=== PATIENT | male | born 1990 | race Caucasian/White ===

== ENCOUNTER 2019-06-07 02:44 | Emergency (ER) | payer BC ==
[2019-06-07] MEDS ORDERED: THIAMINE 200 MG/2 ML INJ ONE (03:12)
[2019-06-07] MEDS ORDERED: MULTIVITAMINS 10 ML VIAL (INJ) IV ONE (03:13)
[2019-06-07] MEDS ORDERED: DIAZEPAM 10 MG/2 ML INJ SYRINGE ONE ×2 (03:13→05:08)
[2019-06-07] MEDS ORDERED: NA CHLORIDE 0.9% 2,000 ML ONE (03:13)
[2019-06-07] MEDS ORDERED: FOLIC ACID 5 MG/ML VIAL ONE (03:14)
[2019-06-07 03:46] LABS: Magnesium 2.1 mg/dL (1.8-2.4); Potassium 3.9 mmol/L (3.5-5.1)
[2019-06-07] MEDS ORDERED: CALCIUM CARBONATE CHEW 500MG TAB ONE (04:53)
[2019-06-07] MEDS ORDERED: LORazepam 2 MG/ML VIAL ONE (05:06)
--- NOTE | 2019-06-07 06:20 | EDPHYS ---
Physician Documentation [facility] Name: Simeon Saul Age: 29 yrs Sex: Male : 1990 Arrival Date: 06/07/2019 Time: 02:47 Bed 15 Private MD: ED Physician Brennon Hernández HPI: 06/07 03:01 This 29 yrs old Male presents to ER via Ambulatory with complaints of rn POSSIBLE DEHYDRATION. 03:01 Reports alcoholic, drinking heavily for "a while", but worse over last 3 months, can go rn about 8 hours without a drink while at work, shakes, and feels anxious, but then drinks when gets home and feels better. States last drink a few hours ago. Feels shaky and couldn't go back to sleep. Not looking for rehab because can't afford to abandon brother at apartment who is dependant on his income as well. No drug use. . Severity of symptoms: At their worst the symptoms were moderate in the emergency department the symptoms are unchanged. The patient has experienced similar episodes in the past. The patient has not recently seen a physician. Historical: - Allergies: 02:56 No Known Allergies; - Home Meds: 02:56 None [Active]; - PMHx: 02:56 None; - PSHx: 02:56 None; - Immunization history:: Adult Immunizations not up to date. - Social history:: Smoking status: Patient uses tobacco products, Patient uses alcohol, on a daily basis. patient/guardian reports recent binge of alcohol consumption. - Ebola Screening: : Patient negative for fever greater than or equal to 101.5 degrees Fahrenheit, and additional compatible Ebola Virus Disease symptoms Patient denies exposure to infectious person. - Family history:: not pertinent. - Hospitalizations: : No recent hospitalization is reported. ROS: 03:01 Constitutional: Negative for fever, chills, and weight loss, Eyes: Negative for injury, rn pain, redness, and discharge, Neck: Negative for injury, pain, and swelling, Cardiovascular: Negative for chest pain, palpitations, and edema, Respiratory: Negative for shortness of breath, cough, wheezing, and pleuritic chest pain, Abdomen/GI: Negative for abdominal pain, nausea, vomiting, diarrhea, and constipation, MS/Extremity: Negative for injury and deformity, Skin: Negative for injury, rash, and discoloration, Neuro: + generalized weakness and shaking, neg for seizures or focal neurological problems. Exam: 03:01 Constitutional: This is a well developed, well nourished patient who is awake, alert, telephonic rn to room without difficulty or assistance Head/Face: Normocephalic, atraumatic. Eyes: Pupils equal round and reactive to light, extra-ocular motions intact. Lids and lashes normal. Conjunctiva and sclera are non-icteric and not injected. Cornea within normal limits. Periorbital areas with no swelling, redness, or edema. ENT: dry MM Cardiovascular: tachycardic, regular, no murmur Respiratory: No increased work of breathing, no retractions or nasal flaring. Abdomen/GI: soft, non-tender MS/ Extremity: Pulses equal, no cyanosis. Neurovascular intact. Full, normal range of motion. Equal circumference. Neuro: Awake and alert, GCS 15, oriented to person, place, time, and situation. Cranial nerves II-XII grossly intact. Motor strength 5/5 in all extremities. Sensory grossly intact. Cerebellar exam normal. Normal gait. + mild extremity tremors. No tongue fasciculation. Vital Signs: 02:59 BP 158 / 98; Pulse 141; Resp 18; Temp 98.5; Pulse Ox 98% ; Weight 65.77 kg; Height 5 wh ft. 7 in. (170.18 cm); 03:58 BP 132 / 80; Pulse 126; Resp 18; Pulse Ox 98% on R/A; wh 05:18 BP 115 / 68; Pulse 110; Resp 18; Pulse Ox 95% on R/A; wh 06:31 BP 115 / 66; Pulse 105; Resp 18; Pulse Ox 96% on R/A; wh 02:59 Body Mass Index 22.71 (65.77 kg, 170.18 cm) MDM: 02:49 Patient medically screened. rn 04:54 Differential Diagnosis dehydration, ETOH dependence with withdrawal. Data reviewed: rn vital signs, nurses notes, lab test result(s), EKG. Counseling: I had a detailed discussion with the patient and/or guardian regarding: the historical points, exam findings, and any diagnostic results supporting the discharge/admit diagnosis, lab results, the need for outpatient follow up, to return to the emergency department if symptoms worsen or persist or if there are any questions or concerns that arise at home. Response to treatment: the patient's symptoms have markedly improved after treatment, the patient's condition has returned to base line, the patient is now symptom free, patient is well hydrated. ED course: Recommended ETOH cessation, patient does not want to be admitted or go through rehab at this time, just wanted help falling asleep and to feel better, instructed him on how to slowly wean himself off ETOH and understands. Improved vitals. Will dc home. . 06/07 03:00 Order name: BMP; Complete Time: 04:20 rn 06/07 03:00 Order name: Magnesium; Complete Time: 04:20 rn 06/07 03:00 Order name: IV Start; Complete Time: 03:32 rn 06/07 03:01 Order name: EKG; Complete Time: 03:02 rn 06/07 03:01 Order name: EKG - Nurse/Tech; Complete Time: 03:32 rn 06/07 04:54 Order name: PO challenge; Complete Time: 04:56 rn Administered Medications: 03:15 Drug: Banana Bag - (NS 0.9% 1000 ml, foLIC Acid 1 mg, Thiamine 100 mg, Multivitamin 1 wh amp) Route: IV; Rate: calculated rate; Site: right forearm; 05:19 Follow up: Response: No adverse reaction; IV Status: Completed infusion 03:15 Drug: NS 0.9% 1000 ml Route: IV; Rate: 1000 ml; Site: right forearm; 05:19 Follow up: Response: No adverse reaction; IV Status: Completed infusion 03:20 Drug: Valium 10 mg Route: IVP; Site: right forearm; 05:20 Follow up: Response: No adverse reaction; RASS: Alert and Calm (0) 04:55 Drug: Calcium Carbonate 500 mg Route: PO; 05:20 Follow up: Response: No adverse reaction 05:10 Drug: Valium 10 mg Route: IVP; Site: right antecubital; 06:30 Follow up: Response: No adverse reaction; RASS: Alert and Calm (0) Disposition: 06/07/19 06:20 Discharged to Home. Impression: Dehydration, Alcohol dependence with withdrawal, Hypocalcemia. - Condition is Stable. - Discharge Instructions: Alcohol Withdrawal, Dehydration, Adult, Alcohol Abuse and Nutrition. - Medication Reconciliation Form, Thank You Letter, Antibiotic Education, Prescription Opioid Use, Work release form form. - Follow up: Private Physician; When: As needed; Reason: Recheck today's complaints, Re-evaluation by your physician. - Problem is new. - Symptoms have improved. Signatures: Dispatcher [employer] EDBrennon August MD MD rn Habalo, Winsy Corrections: (The following items were deleted from the chart) 06:32 06:20 06/07/2019 06:20 Discharged to Home. Impression: Dehydration; Alcohol dependence wh with withdrawal; Hypocalcemia. Condition is Stable. Forms are Medication Reconciliation Form, Thank You Letter, Antibiotic Education, Prescription Opioid Use. Follow up: Private Physician; When: As needed; Reason: Recheck today's complaints, Re-evaluation by your physician. Problem is new. Symptoms have improved. rn
--- NOTE | 2019-06-07 06:20 | ER ---
Nurse's Notes [facility] Name: Simeon Saul Age: 29 yrs Sex: Male : 1990 Arrival Date: 06/07/2019 Time: 02:47 Bed 15 Private MD: Diagnosis: Dehydration;Alcohol dependence with withdrawal;Hypocalcemia Presentation: 06/07 02:54 Presenting complaint: Patient states: He was binge drinking for a couple of weeks, wh feels like he is dehydrated C/O muscle cramping and tremors. Transition of care: patient was not received from another setting of care. Onset of symptoms was June 07, 2019. Risk Assessment: Do you want to hurt yourself or someone else? Patient reports no desire to harm self or others. Initial Sepsis Screen: Does the patient meet any 2 criteria? HR > 90 bpm. Does the patient have a suspected source of infection? No. Patient's initial sepsis screen is negative. Care prior to arrival: None. 02:54 Method Of Arrival: Ambulatory 02:54 Acuity: PAKO 3 Historical: - Allergies: 02:56 No Known Allergies; - Home Meds: 02:56 None [Active]; - PMHx: 02:56 None; - PSHx: 02:56 None; - Immunization history:: Adult Immunizations not up to date. - Social history:: Smoking status: Patient uses tobacco products, Patient uses alcohol, on a daily basis. patient/guardian reports recent binge of alcohol consumption. - Ebola Screening: : Patient negative for fever greater than or equal to 101.5 degrees Fahrenheit, and additional compatible Ebola Virus Disease symptoms Patient denies exposure to infectious person. - Family history:: not pertinent. - Hospitalizations: : No recent hospitalization is reported. Screenin:57 Abuse screen: Denies threats or abuse. Denies injuries from another. Nutritional screening: No deficits noted. Tuberculosis screening: No symptoms or risk factors identified. Fall Risk None identified. Assessment: 02:58 General: Appears in no apparent distress. Behavior is calm, cooperative, appropriate wh for age, Smells of alcohol. Pain: Denies pain. Neuro: Level of Consciousness is awake, alert, obeys commands, Oriented to person, place, time, situation, Appropriate for age. Cardiovascular: Heart tones S1 S2. Respiratory: Airway is patent Respiratory effort is even, unlabored, Respiratory pattern is regular, symmetrical, Breath sounds are clear bilaterally. GI: Abdomen is flat, non-distended. : No signs and/or symptoms were reported regarding the genitourinary system. EENT: No signs and/or symptoms were reported regarding the EENT system. Derm: Skin is intact, is healthy with good turgor, Skin is pink, warm \T\ dry. normal. Musculoskeletal: Circulation, motion, and sensation intact. 03:58 Reassessment: Patient appears in no apparent distress at this time. No changes from previously documented assessment. Patient and/or family updated on plan of care and expected duration. Pain level reassessed. Patient is alert, oriented x 3, equal unlabored respirations, skin warm/dry/pink. 05:19 Reassessment: Patient appears in no apparent distress at this time. No changes from previously documented assessment. Patient and/or family updated on plan of care and expected duration. Pain level reassessed. Patient is alert, oriented x 3, equal unlabored respirations, skin warm/dry/pink. 06:31 Reassessment: Patient appears in no apparent distress at this time. No changes from previously documented assessment. Patient and/or family updated on plan of care and expected duration. Pain level reassessed. Patient is alert, oriented x 3, equal unlabored respirations, skin warm/dry/pink. Patient states feeling better. Vital Signs: 02:59 BP 158 / 98; Pulse 141; Resp 18; Temp 98.5; Pulse Ox 98% ; Weight 65.77 kg; Height 5 wh ft. 7 in. (170.18 cm); 03:58 BP 132 / 80; Pulse 126; Resp 18; Pulse Ox 98% on R/A; 05:18 BP 115 / 68; Pulse 110; Resp 18; Pulse Ox 95% on R/A; 06:31 BP 115 / 66; Pulse 105; Resp 18; Pulse Ox 96% on R/A; 02:59 Body Mass Index 22.71 (65.77 kg, 170.18 cm) ED Course: 02:47 Patient arrived in ED. [id number] 02:49 Brennon Hernández MD is Attending Physician. rn 02:54 Davis Lopez is Primary Nurse. 02:56 Triage completed. 02:58 Patient has correct armband on for positive identification. Bed in low position. Call light in reach. Side rails up X 1. Pulse ox on. NIBP on. 02:59 Arm band placed on right wrist. 03:10 Inserted saline lock: 20 gauge in right forearm, using aseptic technique. Blood collected. 06:32 No provider procedures requiring assistance completed. IV discontinued, intact, bleeding controlled, No redness/swelling at site. Administered Medications: 03:15 Drug: Banana Bag - (NS 0.9% 1000 ml, foLIC Acid 1 mg, Thiamine 100 mg, Multivitamin 1 wh amp) Route: IV; Rate: calculated rate; Site: right forearm; 05:19 Follow up: Response: No adverse reaction; IV Status: Completed infusion 03:15 Drug: NS 0.9% 1000 ml Route: IV; Rate: 1000 ml; Site: right forearm; 05:19 Follow up: Response: No adverse reaction; IV Status: Completed infusion 03:20 Drug: Valium 10 mg Route: IVP; Site: right forearm; 05:20 Follow up: Response: No adverse reaction; RASS: Alert and Calm (0) 04:55 Drug: Calcium Carbonate 500 mg Route: PO; 05:20 Follow up: Response: No adverse reaction 05:10 Drug: Valium 10 mg Route: IVP; Site: right antecubital; 06:30 Follow up: Response: No adverse reaction; RASS: Alert and Calm (0) Outcome: 06:20 Discharge ordered by . rn 06:32 Discharged to home ambulatory. 06:32 Condition: stable 06:32 Discharge instructions given to patient, Instructed on discharge instructions, follow up and referral plans. POC Demonstrated understanding of instructions, follow-up care, POC 06:32 Patient left the ED. Signatures: Brennon Hernández MD MD rn Habalo, Davis Elysia Schumacher jg7
[2019-06-07 06:48] VITALS: TEMP 98.5
[2019-06-07 06:56] VITALS: BP 115/66; O2SAT 96
--- NOTE | 2019-06-07 07:42 | EKG ---
Test Date: 2019-06-07 Test Time: 03:28:05 Cessation Systems Outreach Specialist: DUNG MEASUREMENT RESULTS: Intervals: Rate: 133 AR: 150 QRSD: 92 QT: 284 QTc: 422 [place]: P: 75 AR: 150 QRS: 85 T: 59 INTERPRETIVE STATEMENTS: Sinus tachycardia Minimal voltage criteria for LVH, may be normal variant ST & T wave abnormality, consider lateral ischemia Abnormal ECG No previous ECG available for comparison Electronically Signed On 06-07-19 07:42:03 IMMIGRATION LAW SPECIALIST by Lane Fox
--- NOTE | 2019-06-07 10:41 | EKG ---
Test Date: 2019-06-07 Test Time: 03:28:38 Pie Filling Mixer: DUNG MEASUREMENT RESULTS: Intervals: Rate: 129 AZ: 148 QRSD: 90 QT: 302 QTc: 442 [place]: P: 76 AZ: 148 QRS: 85 T: 63 INTERPRETIVE STATEMENTS: Sinus tachycardia Minimal voltage criteria for LVH, may be normal variant ST & T wave abnormality, consider lateral ischemia Abnormal ECG Compared to ECG 06/07/2019 03:28:05 No significant changes Electronically Signed On 06-07-19 10:41:08 DIESEL LOCOMOTIVE ENGINEER by Lane Fox
== END 2019-06-07 06:32 | disposition home or self-care (01) ==
LOC: ER 02:44
DX: E86.0 Dehydration (principal); F10.239 Alcohol dependence with withdrawal, unspecified; E83.51 Hypocalcemia; Z72.0 Tobacco use
CPT/HCPCS: 96365; 93005 ×2; 80048; 36415; 83735; 96375; 99284; 96366; J3411; J3360 ×2; J7030

== ENCOUNTER 2020-01-30 08:34 | Emergency (ER) | payer BC ==
[2020-01-30] MEDS ORDERED: HYDROCODONE/APAP 7.5/325 MG TAB ONE (09:40)
--- NOTE | 2020-01-30 09:47 | EDPHYS ---
Physician Documentation [facility] Name: Simeon Saul Age: 29 yrs Sex: Male : 1990 Arrival Date: 01/30/2020 Time: 08:36 Bed 15 Private MD: ED Physician Brennon Hernández HPI: 01/29 09:01 This 29 yrs old Male presents to ER via Ambulatory with complaints of Foot jr8 Injury. 09:01 The patient presents with a contusion, decreased range of motion, an injury, swelling. jr8 The complaints affect the dorsum of right foot. Context: The problem was sustained at home, resulted from an unknown cause, pt was intoxicated at the time, the patient is not able to bear weight, must have assistance, Problem is a result from a previous injury: No. Onset: The symptoms/episode began/occurred acutely. Modifying factors: The symptoms are alleviated by remaining still, the symptoms are aggravated by movement. Associated signs and symptoms: The patient has no apparent associated signs or symptoms. Treatment prior to arrival includes: no previous treatment. Severity of symptoms: At their worst the symptoms were moderate, in the emergency department the symptoms are unchanged. 09:03 pt presents to ED c/o R foot pain since this morning with swelling/contusion to dorsum jr8 of the foot. The pt states that he "drank too much last night", and does not know how he injured his foot. States that it is too painful to bear weight, but is able to move his toes. Denies any other symptoms at this time.. Historical: - Allergies: 08:37 No Known Allergies; aa5 - PMHx: 08:37 None; aa5 - PSHx: 08:37 None; aa5 ROS: 09:14 Eyes: Negative for injury, pain, redness, and discharge, ENT: Negative for injury, jr8 pain, and discharge, Neck: Negative for injury, pain, and swelling, Cardiovascular: Negative for chest pain, palpitations, and edema, Respiratory: Negative for shortness of breath, cough, wheezing, and pleuritic chest pain, Abdomen/GI: Negative for abdominal pain, nausea, vomiting, diarrhea, and constipation, Back: Negative for injury and pain, Skin: Negative for injury, rash, and discoloration, Neuro: Negative for headache, weakness, numbness, tingling, and seizure. 09:14 MS/extremity: Positive for pain, swelling, tenderness, of the dorsum of right foot. Exam: 09:14 Constitutional: This is a well developed, well nourished patient who is awake, alert, jr8 and in no acute distress. Cardiovascular: Regular rate and rhythm with a normal S1 and S2. No gallops, murmurs, or rubs. Normal PMI, no JVD. No pulse deficits. Respiratory: Lungs have equal breath sounds bilaterally, clear to auscultation and percussion. No rales, rhonchi or wheezes noted. No increased work of breathing, no retractions or nasal flaring. Abdomen/GI: Soft, non-tender, with normal bowel sounds. No distension or tympany. No guarding or rebound. No evidence of tenderness throughout. Back: No spinal tenderness. No costovertebral tenderness. Full range of motion. Skin: Warm, dry with normal turgor. Normal color with no rashes, no lesions, and no evidence of cellulitis. Neuro: Awake and alert, GCS 15, oriented to person, place, time, and situation. Cranial nerves II-XII grossly intact. Motor strength 5/5 in all extremities. Sensory grossly intact. Cerebellar exam normal. Normal gait. 09:14 Musculoskeletal/extremity: Extremities: grossly normal except: noted in the dorsum of right foot: mild swelling and bruising noted to dorsum of right foot without other trauma , ROM: intact in all extremities, full active range of motion, full passive range of motion, limited active range of motion due to pain, limited passive range of motion due to pain, Circulation is intact in all extremities. Sensation intact. Vital Signs: 08:37 BP 126 / 85; Pulse 107; Resp 18 S; Temp 98.6(O); Pulse Ox 100% on R/A; aa5 MDM: 08:43 Patient medically screened. jr8 09:45 Data reviewed: vital signs, nurses notes, radiologic studies, plain films. Data jr8 interpreted: Pulse oximetry: on room air is 100 %. Interpretation: normal. Counseling: I had a detailed discussion with the patient and/or guardian regarding: the historical points, exam findings, and any diagnostic results supporting the discharge/admit diagnosis, radiology results, the need for outpatient follow up, a orthopedic surgeon, to return to the emergency department if symptoms worsen or persist or if there are any questions or concerns that arise at home. 01/29 08:46 Order name: Foot Right 3 View XRAY jr8 Administered Medications: 09:31 Drug: [place] (7.5 mg-325 mg) 1 tabs Route: PO; em 10:00 Follow up: Response: No adverse reaction; Marked relief of symptoms; Pain is decreased em Disposition: 10:12 Co-signature as Attending Physician, Brennon Hernández MD. rn Disposition: 01/30/20 09:46 Discharged to Home. Impression: Contusion of right foot. - Condition is Stable. - Discharge Instructions: Foot Contusion. - Work release form, Medication Reconciliation Form, Thank You Letter, Antibiotic Education, Prescription Opioid Use form. - Follow up: Jorden Parisi MD; When: 5 - 6 days; Reason: Recheck today's complaints, Continuance of care, Re-evaluation by your physician. - Problem is new. - Symptoms have improved. Signatures: Dispatcher [employer] EDLit Daniels, RN RN Brennon Hernández MD MD rn Calderon, Audri, RN RN aa5 Jero Edmond PA PA jr8 Corrections: (The following items were deleted from the chart) 10:06 09:46 01/30/2020 09:46 Discharged to Home. Impression: Contusion of right foot. em Condition is Stable. Forms are Medication Reconciliation Form, Thank You Letter, Antibiotic Education, Prescription Opioid Use. Follow up: Jorden Parisi; When: 5 - 6 days; Reason: Recheck today's complaints, Continuance of care, Re-evaluation by your physician. Problem is new. Symptoms have improved. jr8
--- NOTE | 2020-01-30 09:47 | ER ---
Nurse's Notes [facility] Name: Simeon Saul Age: 29 yrs Sex: Male : 1990 Arrival Date: 01/30/2020 Time: 08:36 Bed 15 Private MD: Diagnosis: Contusion of right foot Presentation: 01/29 08:37 Chief complaint: Patient states: "I was drunk and woke up with my right foot swollen aa5 and it hurts". Swelling noted to dorsum of right foot. 08:37 Coronavirus screen: Client denies travel out of the [place] in the last 14 days. At this aa5 time, the client does not indicate any symptoms associated with coronavirus-19. Ebola Screen: Patient negative for fever greater than or equal to 101.5 degrees Fahrenheit, and additional compatible Ebola Virus Disease symptoms. Initial Sepsis Screen: Does the patient meet any 2 criteria? No. Patient's initial sepsis screen is negative. Does the patient have a suspected source of infection? No. Patient's initial sepsis screen is negative. Risk Assessment: Do you want to hurt yourself or someone else? Patient reports no desire to harm self or others. Onset of symptoms was January 2020. 08:37 Acuity: PAKO 4 aa5 08:37 Method Of Arrival: Ambulatory aa5 Historical: - Allergies: 08:37 No Known Allergies; aa5 - PMHx: 08:37 None; aa5 - PSHx: 08:37 None; aa5 Screenin:15 Abuse screen: Denies threats or abuse. Nutritional screening: No deficits noted. em Tuberculosis screening: No symptoms or risk factors identified. Fall Risk None identified. Vital Signs: 08:37 BP 126 / 85; Pulse 107; Resp 18 S; Temp 98.6(O); Pulse Ox 100% on R/A; aa5 ED Course: 08:36 Patient arrived in ED. as 08:37 Arm band placed on. aa5 08:38 Jero Edmond PA is PHCP. jr8 08:38 Brennon Hernández MD is Attending Physician. jr8 08:47 Triage completed. aa5 09:00 Lit Choe, RN is Primary Nurse. em 09:15 Patient has correct armband on for positive identification. Call light in reach. em 09:46 Jorden Parisi MD is Referral Physician. jr8 10:06 Patient did not have IV access during this emergency room visit. em 10:06 No provider procedures requiring assistance completed. em Administered Medications: : Drug: [place] (7.5 mg-325 mg) 1 tabs Route: PO; em 10:00 Follow up: Response: No adverse reaction; Marked relief of symptoms; Pain is decreased em Outcome: :46 Discharge ordered by . jr8 10: Discharged to home with crutches. em 10:06 Condition: good 10:06 Discharge instructions given to patient, Instructed on discharge instructions, follow up and referral plans. crutch walking, Demonstrated understanding of instructions, follow-up care, crutch walking. 10:06 Patient left the ED. em Signatures: Lit Choe, RN RN em Mary Beth De Leon Audri RN RN aa5 Jero Edmond PA PA jr8
[2020-01-30 10:17] VITALS: BP 126/85; TEMP 98.6; O2SAT 100
--- NOTE | 2020-01-30 11:53 | RAD REPORT ---
EXAM DESCRIPTION: RAD - Foot Right 3 View - 01/30/2020 9:15 am CLINICAL HISTORY: Pain;Swelling COMPARISON: No comparisons FINDINGS: Soft tissue swelling is seen along the dorsum of the foot. No fracture is clearly seen. If pain persists or progresses, CT or MR imaging of the foot would be recommended for followup.
== END 2020-01-30 10:06 | disposition home or self-care (01) ==
LOC: ER 08:34
DX: S90.31XA Contusion of right foot, initial encounter (principal)
CPT/HCPCS: 99283